=== PATIENT | female | born 1965 | race Caucasian/White ===

== ENCOUNTER 2017-05-30 17:35 | Observation (INO) | payer BC, OTHER ==
[~2017-05-30 17:35] MED LIST: ATOR20TA15 PO; CANA100T PO; DICL1GEL TOPICAL; GABA300C5 PO; HYDR-3533 PO; LEVEMIR SQ; LORA-474 PO; LOSA50TA PO; METO25TA3 PO; OMEP40CA2 PO; PHEN37.54 PO; TRAM50TA PO; TRAZ50TA12 PO; VALA500T PO; VENL37.5 PO
[2017-05-30 18:21] VITALS: BP 154/84; PULSE 105; RESP 20; TEMP 98.9; O2SAT 97
[2017-05-30] MEDS ORDERED: LORA-474 PO (20:21)
[2017-05-30] MEDS ORDERED: DICL1GEL7 TOPICAL (20:21)
[2017-05-30] MEDS ORDERED: METO25TA3 PO (20:21)
[2017-05-30] MEDS ORDERED: LOSA50TA PO (20:21)
[2017-05-30] MEDS ORDERED: SITA25 PO (20:22)
[2017-05-30] MEDS ORDERED: TOPI25 PO (20:22)
[2017-05-30 20:25] VITALS: BP 165/81; PULSE 86
[2017-05-30 20:37] LABS: AUTOMATED NEUTROPHIL # 4.3 TH/MM3 (1.8-7.7); BASOPHIL # 0.1 TH/MM3 (0-0.2); BASOPHIL % 1.2 % (0.0-2.0); EOSINOPHIL # 0.3 TH/MM3 (0-0.4); EOSINOPHIL % 4.4 % (0.0-4.0); HEMATOCRIT 44.8 % (35.0-46.0); HEMOGLOBIN 14.1 GM/DL (11.6-15.3); LYMPH % 29.3 % (9.0-44.0); LYMPHOCYTE # 2.2 TH/MM3 (1.0-4.8); MEAN CELL VOLUME 88.9 FL (80.0-100.0); MEAN CORPUSCULAR HGB CONC 31.5 % (32.0-36.0); MEAN PLATELET VOLUME 8.8 FL (7.0-11.0); MONO % 7.9 % (0.0-8.0); MONOCYTE # 0.6 TH/MM3 (0-0.9); NEUT % 57.2 % (16.0-70.0); PLATELET COUNT 257 TH/MM3 (150-450); RED BLOOD COUNT 5.04 MIL/MM3 (4.00-5.30); WHITE BLOOD COUNT 7.5 TH/MM3 (4.0-11.0)
[2017-05-30 20:47] LABS: CHLORIDE 105 MEQ/L (98-107); SODIUM (NA) 138 MEQ/L (136-145)
[2017-05-30 20:51] LABS: ALBUMIN 3.8 GM/DL (3.4-5.0); BICARBONATE 26.5 MEQ/L (21.0-32.0); CALCIUM 9.3 MG/DL (8.5-10.1); GLUCOSE,RANDOM 201 MG/DL (74-106); LIPASE 348 U/L (73-393); MAGNESIUM 2.2 MG/DL (1.5-2.5)
[2017-05-30 20:52] LABS: BLOOD UREA NITROGEN 16 MG/DL (7-18)
[2017-05-30 20:54] LABS: ALT (GPT) 25 U/L (10-53); AST (GOT) 9 U/L (15-37); CREATININE 0.76 MG/DL (0.50-1.00); GLOMERULAR FILTRATION RATE 80 ML/MIN (>89)
[2017-05-30 20:56] LABS: TOTAL BILIRUBIN ADULT 0.2 MG/DL (0.2-1.0); TOTAL PROTEIN 7.4 GM/DL (6.4-8.2)
[2017-05-30 20:57] LABS: ALKALINE PHOSPHATASE 113 U/L (45-117)
--- NOTE | 2017-05-30 20:59 | RADRPT ---
EXAM DATE/TIME: 05/30/2017 20:43 [facility] COMPARISON: No previous studies available for comparison. INDICATIONS : Chest pain. MEDICAL HISTORY : None. SURGICAL HISTORY : None. ENCOUNTER: Initial ACUITY: 1 day PAIN SCORE: 5/10 LOCATION: Bilateral chest FINDINGS: A single view of the chest demonstrates the lungs to be symmetrically aerated without evidence of mas s, infiltrate or effusion. The cardiomediastinal contours are unremarkable. Osseous structures are intact. CONCLUSION: Normal examination. Ron Adler MD on May 30, 2017 at 20:57 Board Certified Radiologist. This report was verified electronically.
[2017-05-30 21:00] LABS: TROPONIN I LESS THAN 0.02 NG/ML (0.02-0.05)
[2017-05-30] MEDS ORDERED: ALUMINUM/MAGNESIUM/SIMETH 30 ML CUP PO ONE (21:00)
[2017-05-30] MEDS ORDERED: LIDOCAINE VISCOUS 2% SOLN 15 ML UDC SWISH-SWAL ONE (21:00)
[2017-05-30] MEDS ORDERED: PANTOPRAZOLE SODIUM 40 MG VIAL IV PUSH ONE (21:00)
[2017-05-30 21:14] VITALS: BP 144/77; PULSE 83; O2SAT 96
--- NOTE | 2017-05-30 21:20 | PD ---
HPI Chief Complaint: Chest Pain Time Seen by Provider: 20:17 Travel History International Travel<30 days: No Contact w/Intl Traveler<30days: No Traveled to known affect area: No History of Present Illness HPI pt has CP left sided off and on for the last 24 hours it is sharp not burning not pressure like , she took omeprazole without relief and pain continues even in ER . Pt has poorly controlled DM on Lantus last Hg A1 c was 12 , pt denies N/V/D pt is awake alert and in no obviuos distress in ER PFSH Past Medical History Depression: Yes Diabetes: Yes Past Surgical History Cholecystectomy: Yes Social History Alcohol Use: No Tobacco Use: No Allergies-Medications (Allergen,Severity, Reaction): Coded Allergies: cefuroxime (Unverified Allergy, Mild, 05/30/17) ciprofloxacin (Unverified Allergy, Mild, 05/30/17) Sulfa (Sulfonamide Antibiotics) (Unverified Allergy, Unknown, 05/30/17) diclofenac (Unverified Allergy, Unknown, 05/30/17) etodolac (Unverified Allergy, Unknown, 05/30/17) flurbiprofen (Unverified Allergy, Unknown, 05/30/17) ibuprofen (Unverified Allergy, Unknown, 05/30/17) indomethacin (Unverified Allergy, Unknown, 05/30/17) ketoprofen (Unverified Allergy, Unknown, 05/30/17) ketorolac (Unverified Allergy, Unknown, 05/30/17) naproxen (Unverified Allergy, Unknown, 05/30/17) oxaprozin (Unverified Allergy, Unknown, 05/30/17) sulfamethoxazole (Unverified Allergy, Unknown, 05/30/17) trimethoprim (Unverified Allergy, Unknown, 05/30/17) Reported Meds & Prescriptions Reported Meds & Active Scripts Active Gabapentin 300 Mg Cap 300 Mg PO HS Reported Topamax (Topiramate) 25 Mg Tab 25 Mg PO DAILY Januvia (Sitagliptin Phosphate) 25 Mg Tab 25 Mg PO DAILY Diclofenac Topical 1% Gel 1 Applic TOPICAL QID Losartan (Losartan Potassium) 50 Mg Tab 50 Mg PO HS Ativan (Lorazepam) 1 Mg Tab 1 Mg PO Q8H PRN Metoprolol Tartrate 25 Mg Tab 25 Mg PO BID Levemir Inj (Insulin Detemir) 1,000 unit/ 10 ML Vial 50 Units SQ HS Do not mix with any other Insulin. Effexor (Venlafaxine HCl) 37.5 Mg Tab 75 Mg PO HS Valacyclovir (Valacyclovir HCl) 500 Mg Tab 500 Mg PO DAILY Trazodone (Trazodone HCl) 50 Mg Tab 50 Mg PO HS Tramadol (Tramadol HCl) 50 Mg Tab 50 Mg PO Q6H PRN Phentermine (Phentermine HCl) 37.5 Mg Cap 37.5 Mg PO DAILY Omeprazole 40 Mg Cap 40 Mg PO HS Metoprolol Tartrate 25 Mg Tab 25 Mg PO DAILY Atorvastatin (Atorvastatin Calcium) 20 Mg Tab 20 Mg PO HS Review of Systems Except as stated in HPI: all other systems reviewed are Neg Cardiovascular: Positive: Chest Pain or Discomfort Physical Exam Narrative GENERAL: non diaphoretic no apparent distress, few papules noted on lower lip and chin SKIN: Warm and dry. few papules on chin and skin HEAD: Atraumatic. Normocephalic. EYES: Pupils equal and round. No scleral icterus. No injection or drainage. ENT: No nasal bleeding or discharge. Mucous membranes pink and moist. NECK: Trachea midline. No JVD. CARDIOVASCULAR: Regular rate and rhythm. RESPIRATORY: No accessory muscle use. Clear to auscultation. Breath sounds equal bilaterally. GASTROINTESTINAL: Abdomen soft, non-tender, nondistended. Hepatic and splenic margins not palpable. MUSCULOSKELETAL: Extremities without clubbing, cyanosis, or edema. No obvious deformities. NEUROLOGICAL: Awake and alert. No obvious cranial nerve deficits. Motor grossly within normal limits. Five out of 5 muscle strength in the arms and legs. Normal speech. PSYCHIATRIC: Appropriate mood and affect; insight and judgment normal. Data Data Last Documented VS Vital Signs Date Time Temp Pulse Resp B/P (MAP) Pulse Ox O2 Delivery O2 Flow Rate FiO2 05/30/17 23:01 75 141/63 (89) 97 Room Air 05/30/17 18:21 98.9 20 Orders Orders Electrocardiogram (05/30/17 18:30) Electrocardiogram (05/30/17 20:21) Complete Blood Count With Diff (05/30/17 20:21) Comprehensive Metabolic Panel (05/30/17 20:21) Ckmb (Isoenzyme) Profile (05/30/17 20:21) Troponin I (05/30/17 20:21) Lipase (1/10/18 20:21) Magnesium (Mg) (05/30/17 20:21) Chest, Single Ap (05/30/17 ) Pantoprazole Inj (Protonix Inj) (05/30/17 21:00) Al-Mag Hy-Si 40-40-4 Mg/Ml Liq (Mag-Al P (05/30/17 21:00) Lidocaine 2% Viscous (Xylocaine 2% Visco (05/30/17 21:00) Aspirin Chew (Aspirin Chew) (05/30/17 21:30) Nitroglycerin 2% Oint (Nitroglycerin 2% (05/30/17 21:30) Morphine Inj (Morphine Inj) (05/30/17 21:30) Atorvastatin (Lipitor) (05/30/17 22:00) Gabapentin (Neurontin) (05/30/17 22:00) Lorazepam (Ativan) (05/30/17 22:00) Losartan (Cozaar) (05/30/17 22:00) Topiramate (Topamax) (05/31/17 09:00) Trazodone (Desyrel) (05/30/17 22:00) Valacyclovir (Valtrex) (05/31/17 09:00) Pantoprazole (Protonix) (05/30/17 22:30) Venlafaxine Xr (Effexor Xr) (05/30/17 22:30) Place In Observation (05/30/17 ) Vital Signs (Adult) Q4H (05/30/17 21:58) Activity Bed Rest With Brp (05/30/17 ) Production Expediter / Telemetry TK.Q8H (05/30/17 21:58) Notify Dr: Other (05/30/17 ) Sodium Chloride 0.9% Flush (Ns Flush) (05/31/17 09:00) Sodium Chloride 0.9% Flush (Ns Flush) (05/30/17 22:00) Nitroglycerin Sl (Nitrostat Sl) (05/30/17 22:00) Acetaminophen (Tylenol) (05/30/17 22:00) Acetamin-Hydrocod 325-7.5 Mg ([place] 7.5 (05/30/17 22:00) Morphine Inj (Morphine Inj) (05/30/17 22:00) Creatine Kinase (Cpk) (05/31/17 02:25) Creatine Kinase (Cpk) (05/31/17 08:25) Troponin I (05/31/17 02:25) Troponin I (05/31/17 08:25) Electrocardiogram (05/31/17 02:25) Electrocardiogram (05/31/17 08:25) Bedside Glucose TK.CSUGAR (05/30/17 22:03) Special Diet Instructions (05/30/17 22:03) Blood Glucose Goal (Criteria) (05/30/17 22:03) Hypoglycemia 70 Mg/Dl Or < (05/30/17 22:03) Notify Dr: Other (05/30/17 22:03) Dextrose 50% In [place] (Vial) Inj (D50w (Vi (05/30/17 22:15) Glucagon Inj (Glucagon Inj) (05/30/17 22:15) Insulin Aspart Supplemtl Scale (Novolog (05/31/17 08:00) ^ Other Nursing Orders (05/30/17 22:03) Heparin Inj (Heparin Inj) (05/31/17 06:00) Admit Order (Ed Use Only) (05/30/17 23:41) Labs Laboratory Tests Test 05/30/17 20:25 White Blood Count 7.5 TH/MM3 Red Blood Count 5.04 MIL/MM3 Hemoglobin 14.1 GM/DL Hematocrit 44.8 % Mean Corpuscular Volume 88.9 FL Mean Corpuscular Hemoglobin 28.0 PG Mean Corpuscular Hemoglobin Concent 31.5 % Red Cell Distribution Width 14.0 % Platelet Count 257 TH/MM3 Mean Platelet Volume 8.8 FL Neutrophils (%) (Auto) 57.2 % Lymphocytes (%) (Auto) 29.3 % Monocytes (%) (Auto) 7.9 % Eosinophils (%) (Auto) 4.4 % Basophils (%) (Auto) 1.2 % Neutrophils # (Auto) 4.3 TH/MM3 Lymphocytes # (Auto) 2.2 TH/MM3 Monocytes # (Auto) 0.6 TH/MM3 Eosinophils # (Auto) 0.3 TH/MM3 Basophils # (Auto) 0.1 TH/MM3 CBC Comment DIFF FINAL Differential Comment Blood Urea Nitrogen 16 MG/DL Creatinine 0.76 MG/DL Random Glucose 201 MG/DL Total Protein 7.4 GM/DL Albumin 3.8 GM/DL Calcium Level 9.3 MG/DL Magnesium Level 2.2 MG/DL Alkaline Phosphatase 113 U/L Aspartate Amino Transf (AST/SGOT) 9 U/L Alanine Aminotransferase (ALT/SGPT) 25 U/L Total Bilirubin 0.2 MG/DL Sodium Level 138 MEQ/L Potassium Level 3.7 MEQ/L Chloride Level 105 MEQ/L Carbon Dioxide Level 26.5 MEQ/L Anion Gap 7 MEQ/L Estimat Glomerular Filtration Rate 80 ML/MIN Total Creatine Kinase 52 U/L Troponin I LESS THAN 0.02 NG/ML Lipase 348 U/L [facility] Medical Decision Making Medical Screen Exam Complete: Yes Emergency Medical Condition: Yes Differential Diagnosis Acute coronary syndrome versus GERD versus costochondritis versus acid reflux versus pneumonia other Narrative Course EKG is normal sinus rhythm first set of troponin is negative patient is given Protonix and GI cocktail to see if this is gastritis it does not relieve any of her symptoms. I then go down the ACS pathway give her 2 chewable baby aspirin and Nitropaste and admit her to telemetry for ruling out acute coronary syndrome pending second troponin Diagnosis Primary Impression: Chest pain Admitting Information Admitting Physician Requests: Observation Ilya Quintana MD May 30, 2017 21:19
[2017-05-30] MEDS ORDERED: ASPIRIN 81 MG CHEW TAB CHEW ONE (21:30)
[2017-05-30] MEDS ORDERED: MORPHINE SULFATE 2 MG/ML INJ IV PUSH ONE (21:30)
[2017-05-30] MEDS ORDERED: NITROGLYCERIN 2% OINT 1 GM PACKET TOPICAL ONE (21:30)
[2017-05-30] MEDS ORDERED: GABAPENTIN 300 MG CAP PO SCH (22:00)
[2017-05-30] MEDS ORDERED: ATORVASTATIN 20 MG TAB PO SCH (22:00)
[2017-05-30] MEDS ORDERED: MORPHINE SULFATE 4 MG/ML INJ IV PUSH PRN (22:00)
[2017-05-30] MEDS ORDERED: LOSARTAN 50 MG TAB PO SCH (22:00)
[2017-05-30] MEDS ORDERED: NITROGLYCERIN 0.4 MG SL 25 TABS/BTL SL PRN (22:00)
[2017-05-30] MEDS ORDERED: LORazepam 1 MG TAB PO PRN (22:00)
[2017-05-30] MEDS ORDERED: SODIUM CHLORIDE 0.9% FLUSH 10 ML FLUSH IV FLUSH PRN (22:00)
[2017-05-30] MEDS ORDERED: ACETAMINOPHEN 500 MG CPLT PO PRN (22:00)
[2017-05-30] MEDS ORDERED: traZODone HCL 50 MG TAB PO SCH (22:00)
[2017-05-30] MEDS ORDERED: DEXTROSE 50% IN WATER 50 ML VIAL(D50) IV PUSH PRN (22:15)
[2017-05-30] MEDS ORDERED: GLUCAGON 1 MG/ML VIAL OTHER PRN (22:15)
[2017-05-30] MEDS ORDERED: VENLAFAXINE HCL XR 75 MG CAP PO SCH (22:30)
[2017-05-30] MEDS ORDERED: PANTOPRAZOLE SOD 40 MG DELAYED RELEASE TAB PO SCH (22:30)
[2017-05-30 23:01] VITALS: BP 141/63; PULSE 75; O2SAT 97
[2017-05-31] MEDS: ACETAMINOPHEN/HYDROcodone 325 MG/7.5 MG TAB PO PRN ×3 (01:08→15:19)
[2017-05-31 01:10] VITALS: BP 127/67; PULSE 73; RESP 16; O2SAT 95
[2017-05-31 02:59] LABS: TROPONIN I LESS THAN 0.02 NG/ML (0.02-0.05)
[2017-05-31 04:00] VITALS: BP 104/55; PULSE 69; RESP 16; TEMP 96.4; O2SAT 96
[2017-05-31] MEDS: HEPARIN SODIUM - SQ 10,000 UNITS/ML VIAL SQ SCH ×2 (05:54→15:20)
[2017-05-31 08:00] VITALS: BP 133/73; PULSE 72; RESP 18; TEMP 97; O2SAT 97
[2017-05-31] MEDS: INSULIN ASPART SUPPLEMENTAL SCALE SQ SCH ×3 (08:00→17:00)
[2017-05-31 08:27] VITALS: PULSE 68
[2017-05-31] MEDS ORDERED: TOPIRAMATE 25 MG TAB PO SCH (09:00)
[2017-05-31] MEDS ORDERED: SODIUM CHLORIDE 0.9% FLUSH 10 ML FLUSH IV FLUSH SCH (09:00)
[2017-05-31] MEDS ORDERED: valACYclovir HCL 500 MG TAB PO SCH (09:00)
--- NOTE | 2017-05-31 09:26 | HHI.HP ---
[facility] Service [facility] Primary Care Physician Suzanne Moon D.O. Admission Diagnosis Chest pain Diagnoses: Chief Complaint: Chest pain Travel History International Travel<30 Days: No Contact w/Intl Traveler <30 Da: No Traveled to Known Affected Are: No History of Present Illness Written by Citlalli Goodwin, acting as scribe for Dr. Mendez on 05/31/17 at 09:26. This is a 52-year-old female patient with a known medical history of hyperlipidemia, hypertension and diabetes who presented to the ED with complaints of chest pain. Patient states that over the last forty-eight hours she has been experiencing intermittent left-sided chest discomfort. She states that the pain is characteristically aching in nature, states "it feels kind of like a punch in the chest", usually last less than a minute and comes and goes on its own without any known alleviating or worsening factors. She does state that the pain seems to come on with exertion and wants rest pain resolves. Denies any associated diaphoresis, nausea or vomiting. Does admit to occasional shortness of breath. She does state that she took omeprazole at home without relief, thinking this might be due to her gastric reflux. Denies any recent illness including fever, chills, cough, abdominal pain, nausea, vomiting, diarrhea or dysuria. Patient is a hospice nurse. Denies any change in medications. PCP is Dr. Mariano. Patient does also have diabetes which is uncontrolled, she does take long-acting insulin. Patient does admit to a history of chest pain two years ago, at that time underwent a cardiac stress test and cardiac catheterization which was reportedly normal. About a year ago patient states that she also had some complete the chest pain underwent a cardiac stress test showing some "shadow" or "abnormality" per patient. At that point with no further intervention was performed or follow-up with health care manager. Review of Systems Constitutional: DENIES: Fatigue, Fever, Chills Eyes: DENIES: Blurred vision, Diplopia Respiratory: COMPLAINS OF: Shortness of breath, DENIES: Cough Cardiovascular: COMPLAINS OF: Chest pain, DENIES: Palpitations Gastrointestinal: DENIES: Abdominal pain, Black stools, Bloody stools, Constipation, Diarrhea, Nausea, Vomiting Musculoskeletal: DENIES: Joint pain Psychiatric: DENIES: Anxiety Except as stated in HPI: all other systems reviewed are Neg Past Family Social History Past Medical History Type 2 diabetes Hypertension Hyperlipidemia Depression Past Surgical History Cholecystectomy Left shoulder repair surgery Right carpal tunnel repair Bilateral knee arthroscopically Right foot anatomy Previous cardiac catheterization 2014 Reported Medications Active Gabapentin 300 Mg Cap 300 Mg PO HS Reported Topamax (Topiramate) 25 Mg Tab 25 Mg PO DAILY Januvia (Sitagliptin Phosphate) 25 Mg Tab 25 Mg PO DAILY Diclofenac Topical 1% Gel 1 Applic TOPICAL QID Losartan (Losartan Potassium) 50 Mg Tab 50 Mg PO HS Ativan (Lorazepam) 1 Mg Tab 1 Mg PO Q8H PRN Metoprolol Tartrate 25 Mg Tab 25 Mg PO BID Levemir Inj (Insulin Detemir) 1,000 unit/ 10 ML Vial 50 Units SQ HS Do not mix with any other Insulin. Effexor (Venlafaxine HCl) 37.5 Mg Tab 75 Mg PO HS Valacyclovir (Valacyclovir HCl) 500 Mg Tab 500 Mg PO DAILY Trazodone (Trazodone HCl) 50 Mg Tab 50 Mg PO HS Tramadol (Tramadol HCl) 50 Mg Tab 50 Mg PO Q6H PRN Phentermine (Phentermine HCl) 37.5 Mg Cap 37.5 Mg PO DAILY Omeprazole 40 Mg Cap 40 Mg PO HS Metoprolol Tartrate 25 Mg Tab 25 Mg PO DAILY Atorvastatin (Atorvastatin Calcium) 20 Mg Tab 20 Mg PO HS Allergies: Coded Allergies: cefuroxime (Unverified Allergy, Mild, 05/30/17) ciprofloxacin (Unverified Allergy, Mild, 05/30/17) Sulfa (Sulfonamide Antibiotics) (Unverified Allergy, Unknown, 05/30/17) diclofenac (Unverified Allergy, Unknown, 05/30/17) etodolac (Unverified Allergy, Unknown, 05/30/17) flurbiprofen (Unverified Allergy, Unknown, 05/30/17) ibuprofen (Unverified Allergy, Unknown, 05/30/17) indomethacin (Unverified Allergy, Unknown, 05/30/17) ketoprofen (Unverified Allergy, Unknown, 05/30/17) ketorolac (Unverified Allergy, Unknown, 05/30/17) naproxen (Unverified Allergy, Unknown, 05/30/17) oxaprozin (Unverified Allergy, Unknown, 05/30/17) sulfamethoxazole (Unverified Allergy, Unknown, 05/30/17) trimethoprim (Unverified Allergy, Unknown, 05/30/17) Active Ordered Medications Current Medications Medications (Trade) Dose Ordered Sig/Kali Route Start Time Stop Time Status Last Admin (Lipitor) 20 mg HS PO 05/30/17 22:00 (Neurontin) 300 mg HS PO 05/30/17 22:00 05/30/17 22:46 (Ativan) 1 mg Q8H PRN PO 05/30/17 22:00 (Cozaar) 50 mg HS PO 05/30/17 22:00 05/30/17 22:57 (Topamax) 25 mg DAILY PO 05/31/17 09:00 05/31/17 08:21 (Desyrel) 50 mg HS PO 05/30/17 22:00 05/30/17 22:57 (Valtrex) 500 mg DAILY PO 05/31/17 09:00 05/31/17 08:21 (Protonix) 40 mg HS PO 05/30/17 22:30 05/30/17 22:46 (Effexor Xr) 75 mg HS PO 05/30/17 22:30 05/30/17 22:57 (NS Flush) 2 ml BID IV FLUSH 05/31/17 09:00 05/31/17 08:26 (NS Flush) 2 ml UNSCH PRN IV FLUSH 05/30/17 22:00 (Nitrostat Sl) 0.4 mg Q5M PRN SL 05/30/17 22:00 (Tylenol) 500 mg Q4H PRN PO 05/30/17 22:00 05/31/17 05:54 ([place] 7.5-325 Mg) 1 tab Q4H PRN PO 05/30/17 22:00 05/31/17 01:08 (Morphine Inj) 2 mg Q3H PRN IV PUSH 05/30/17 22:00 (Heparin Inj) 5,000 units Q8HR SQ 05/31/17 06:00 05/31/17 05:54 (D50w (Vial) Inj) 50 ml UNSCH PRN IV PUSH 05/30/17 22:15 (Glucagon Inj) 1 mg UNSCH PRN OTHER 05/30/17 22:15 (NovoLOG SUPPLEMENTAL SCALE) 1 ACHS SLIDING SCALE SQ 05/31/17 08:00 Family History Paternal medical history significant for CHF, diabetes and stroke. Maternal medical history significant for hyperlipidemia, hypertension and leukemia. Social History Patient denies any current tobacco use. States she quit thirteen years ago. Denies any illicit drug use. Does admit to occasional alcohol use. Physical Exam Vital Signs Vital Signs Date Time Temp Pulse Resp B/P (MAP) Pulse Ox O2 Delivery O2 Flow Rate FiO2 05/31/17 04:00 96.4 69 16 104/55 (71) 96 05/31/17 01:15 05/31/17 01:10 73 16 127/67 (87) 95 Room Air 05/30/17 23:01 75 141/63 (89) 97 Room Air 05/30/17 21:14 83 144/77 (99) 96 Room Air 05/30/17 20:35 87 Room Air 05/30/17 20:25 86 165/81 (109) Room Air 05/30/17 18:21 98.9 105 20 154/84 (107) 97 Physical Exam GENERAL: This is a well-developed patient, lying in bed in no apparent distress. SKIN: No rashes, ecchymoses or lesions. Warm and dry. HEAD: Atraumatic. Normocephalic. EYES: Pupils equal round and reactive. Extraocular motions intact. No scleral icterus. No injection or drainage. ENT: Nose without bleeding, purulent drainage or septal hematoma. Throat without erythema, tonsillar hypertrophy or exudate. Uvula midline. Airway patent. NECK: Trachea midline. No JVD. Supple. CARDIOVASCULAR: Regular rate and rhythm without murmurs, gallops, or rubs. No reproducible chest pain to palpation RESPIRATORY: Clear to auscultation. Breath sounds equal bilaterally. No wheezes , rales, or rhonchi. GASTROINTESTINAL: Abdomen soft, non-tender, nondistended. No guarding. MUSCULOSKELETAL: Extremities without clubbing, cyanosis, or edema. No joint tenderness, effusion, or edema noted. NEUROLOGICAL: Awake and alert. Cranial nerves II through XII intact. Motor and sensory grossly within normal limits. Five out of 5 muscle strength in all muscle groups. Normal speech. Laboratory Laboratory Tests Test 05/30/17 20:25 05/31/17 02:25 05/31/17 08:15 White Blood Count 7.5 Red Blood Count 5.04 Hemoglobin 14.1 Hematocrit 44.8 Mean Corpuscular Volume 88.9 Mean Corpuscular Hemoglobin 28.0 Mean Corpuscular Hemoglobin Concent 31.5 Red Cell Distribution Width 14.0 Platelet Count 257 Mean Platelet Volume 8.8 Neutrophils (%) (Auto) 57.2 Lymphocytes (%) (Auto) 29.3 Monocytes (%) (Auto) 7.9 Eosinophils (%) (Auto) 4.4 Basophils (%) (Auto) 1.2 Neutrophils # (Auto) 4.3 Lymphocytes # (Auto) 2.2 Monocytes # (Auto) 0.6 Eosinophils # (Auto) 0.3 Basophils # (Auto) 0.1 CBC Comment DIFF FINAL Differential Comment Blood Urea Nitrogen 16 Creatinine 0.76 Random Glucose 201 Total Protein 7.4 Albumin 3.8 Calcium Level 9.3 Magnesium Level 2.2 Alkaline Phosphatase 113 Aspartate Amino Transf (AST/SGOT) 9 Alanine Aminotransferase (ALT/SGPT) 25 Total Bilirubin 0.2 Sodium Level 138 Potassium Level 3.7 Chloride Level 105 Carbon Dioxide Level 26.5 Anion Gap 7 Estimat Glomerular Filtration Rate 80 Total Creatine Kinase 52 55 Troponin I LESS THAN 0.02 LESS THAN 0.02 Lipase 348 Result Diagram: 05/30/17202405/30/172024 Imaging Last Impressions Chest X-Ray 05/30/17 0000 Signed Impressions: Service Date/Time: Tuesday, May 30, 2017 20:43 - CONCLUSION: Normal examination. Ron Adler MD Septic Shock Reassessment Septic shock perfusion: reassessment completed Caprini VTE Risk Assessment Caprini VTE Risk Assessment: No/Low Risk (score <= 1) Caprini Risk Assessment Model Point Value = 1 Point Value = 2 Point Value = 3 Point Value = 5 Age 41-60 Minor surgery BMI > 25 kg/m2 Swollen legs Varicose veins or History of unexplained or recurrent spontaneous Oral contraceptives or hormone replacement Sepsis (< 1 month) Serious lung disease, including pneumonia (< 1 month) Abnormal pulmonary function Acute myocardial infarction Congestive heart failure (< 1 month) History of inflammatory bowel disease Medical patient at bed rest Age 61-74 Arthroscopic surgery Major open surgery (> 45 min) Laparoscopic surgery (> 45 min) Malignancy Confined to bed (> 72 hours) Immobilizing plaster cast Central venous access Age >= 75 History of VTE Family history of VTE Factor V Leiden Prothrombin [id number] Lupus anticoagulant Anticardiolipin antibodies Elevated serum homocysteine Heparin-induced thrombocytopenia Other congenital or acquired thrombophilia Stroke (< 1 month) Elective arthroplasty Hip, pelvis, or leg fracture Acute spinal cord injury (< 1 month) Prophylaxis Regimen Total Risk Factor Score Risk Level Prophylaxis Regimen 0-1 Low Early ambulation 2 Moderate Order ONE of the following: *Sequential Compression Device (SCD) *Heparin 5000 units SQ BID 3-4 Higher Order ONE of the following medications: *Heparin 5000 units SQ TID *Enoxaparin/Lovenox 40 mg SQ daily (WT < 150 kg, CrCl > 30 mL/min) *Enoxaparin/Lovenox 30 mg SQ daily (WT < 150 kg, CrCl > 10-29 mL/min) *Enoxaparin/Lovenox 30 mg SQ BID (WT < 150 kg, CrCl > 30 mL/min) AND/OR *Sequential Compression Device (SCD) 5 or more Highest Order ONE of the following medications: *Heparin 5000 units SQ TID (Preferred with Epidurals) *Enoxaparin/Lovenox 40 mg SQ daily (WT < 150 kg, CrCl > 30 mL/min) *Enoxaparin/Lovenox 30 mg SQ daily (WT < 150 kg, CrCl > 10-29 mL/min) *Enoxaparin/Lovenox 30 mg SQ BID (WT < 150 kg, CrCl > 30 mL/min) AND *Sequential Compression Device (SCD) Assessment and Plan Problem List: (1) Chest pain ICD Code: R07.9 - Chest pain, unspecified Plan: Patient has been admitted to the chest pain center under observation. Serial EKGs and serial troponins have been ordered for ruling out ACS purposes. Serial troponins are flat. EKG has been reviewed, controlled heart rate, with presence of right bundle branch block. Patient states that this is not a new finding. Chest pain has at this time resolved. Patient is lying in bed comfortably. Taking into consideration patient's family medical history, and personal cardiac history, and comorbidities patient will undergo a cardiac chemical stress test to rule out any further ischemia. Chest x-ray reviewed CBC and BMP reviewed viewed, essentially unremarkable. Supplemental O2 as needed. Patient is tolerating room air comfortably. Status stable at this time and agreeable to the plan. (2) Hypertension ICD Code: I10 - Essential (primary) hypertension Plan: Blood pressures repute, controlled at this time. Continue home medications. (3) Hyperlipidemia ICD Code: E78.5 - Hyperlipidemia, unspecified Plan: Continue home statin. (4) Type 2 diabetes mellitus ICD Code: E11.9 - Type 2 diabetes mellitus without complications Plan: Patient has been nothing by mouth. Will place on Accu-Cheks, sliding scale, cover as needed. Monitor blood sugar trends. (5) Depression ICD Code: F32.9 - Major depressive disorder, single episode, unspecified Plan: Continue home medications. DVT prophylaxis: SCDs. Assessment and Plan This note was transcribed by ANAYELI Ashraf. I, Dr. Chloe Mendez personally performed the history, physical exam, and medical decision making; and confirmed the accuracy of the information in the transcribed note. Authenticated by Dr. Chloe Mendez on 05/31/17 at 09:26. DC plan: Mary scan reviewed and negative, low risk, EF 70% DC home in stable condition to follow up as OP with PCP and consultants Diet Healthy hears and diabetic diet Activity ad sonia as tolerated Meds per med reconciliations Discussed Condition With patient. Citlalli Gates May 31, 2017 09:26 Chloe Mendez MD May 31, 2017 09:28
[2017-05-31 10:12] LABS: TROPONIN I LESS THAN 0.02 NG/ML (0.02-0.05)
[2017-05-31 12:00] VITALS: BP 119/69; PULSE 70; RESP 18; TEMP 97.2; O2SAT 97
--- NOTE | 2017-05-31 13:07 | RADRPT ---
EXAM DATE/TIME: 05/31/2017 10:39 [facility] COMPARISON: No previous studies available for comparison. INDICATIONS : Left chest pain. Angina. DOSE: 35 mCi Tc99m Myoview at stress. 11 mCi Tc99m Myoview at rest. 0.4 mg Lexiscan STRESS SYMPTOMS: Chest pressure, headache and tingling. EJECTION FRACTION: > 70% MEDICAL HISTORY : Diabetes mellitus type 2. Hypercholesterolemia. Hypertension. SURGICAL HISTORY : Cholecystectomy. ENCOUNTER: Initial ACUITY: 1 day PAIN SCALE: 7/10 LOCATION: Left chest TECHNIQUE: The patient underwent pharmacologic stress with infusion of prescribed dose. Continuous ECG tracing was monitored during stress. Gated SPECT imaging was performed after stress and conventional SPECT i maging was performed at rest. The examination was performed on a SPECT/CT scanner, both attenuation and non-corrected datasets were reviewed. FINDINGS: DISTRIBUTION: The maximum perfused segment at stress is in the lateral wall. PERFUSION STUDY: The pattern of perfusion at stress is within normal limits. GATED STUDY: There is intact wall motion and thickening without hypokinetic or dyskinetic segments. CONCLUSION: 1. No evidence for significant stress induced ischemia. 2. Normal wall motion with EF of greater than 70%. RISK CATEGORY: Low (<1% Annual Mortality Rate) Elmo Flores MD on May 31, 2017 at 13:04 Board Certified Radiologist. This report was verified electronically.
--- NOTE | 2017-05-31 15:17 | HHI.DCPOC ---
Discharge Care Plan Goals to Promote Your Health * To prevent worsening of your condition and complications * To maintain your health at the optimal level Directions to Meet Your Goals Take your medications as prescribed Follow your dietary instruction Follow activity as directed Keep your appointments as scheduled Take your immunizations and boosters as scheduled If your symptoms worsen call your PCP, if no PCP go to Urgent Care Center or Emergency Room Smoking is Dangerous to Your Health. Avoid second hand smoke Call the 24-hour hour crisis hotline for domestic abuse at Chloe Mendez MD May 31, 2017 15:17
[2017-05-31 16:00] VITALS: BP 120/74; PULSE 74; RESP 16; TEMP 97.8; O2SAT 95
--- NOTE | 2017-05-31 20:53 | EKG ---
Date Performed: 05/31/2017 Time Performed: 08:07:02 PTAGE: 52 years EKG: Sinus rhythm RIGHT BUNDLE BRANCH BLOCK ABNORMAL ECG SINCE PRIOR TRACING NO SIGNIFICANT CHANGE PREVIOUS TRACING : 05/31/2017 02.01 DOCTOR: Imani Clemons Interpretating Date/Time 05/31/2017 20:51:31
[2017-05-31] MEDS ORDERED: REGADENOSON INJ 0.4 MG/5 ML SYR IV ONE (23:43)
--- NOTE | 2017-06-01 06:25 | EKG ---
Date Performed: 05/30/2017 Time Performed: 18:30:25 PTAGE: 52 years EKG: Sinus rhythm RIGHT BUNDLE BRANCH BLOCK ABNORMAL ECG Compared to PREVIOUS TRACING , the patient has developed a right bundle branch block. There is diffus e nonspecific ST elevation, probably secondary to the right bundle branch block but it was also previ ously noted. PREVIOUS TRACIN02/11/2005 15.32 DOCTOR: Imani Clemons Interpretating Date/Time 06/01/2017 06:24:37
--- NOTE | 2017-06-01 06:25 | EKG ---
Date Performed: 05/30/2017 Time Performed: 20:35:06 PTAGE: 52 years EKG: Sinus rhythm RIGHT BUNDLE BRANCH BLOCK ABNORMAL ECG Since PREVIOUS TRACING , no significant change noted PREVIOUS TRACIN05/30/2017 18.30 DOCTOR: Imani Clemons Interpretating Date/Time 06/01/2017 06:25:09
--- NOTE | 2017-06-01 06:27 | EKG ---
Date Performed: 05/31/2017 Time Performed: 02:01:54 PTAGE: 52 years EKG: Sinus rhythm RIGHT BUNDLE BRANCH BLOCK ABNORMAL ECG Since PREVIOUS TRACING , no significant change noted PREVIOUS TRACIN05/30/2017 20.35 DOCTOR: Imani Clemons Interpretating Date/Time 06/01/2017 06:25:34
--- NOTE | 2017-06-01 16:05 | TR ---
Date Performed: 05/31/2017 Time Performed: 11:40:53 DOCTOR: Richy Thompson DRUG LIST: CLINICAL HISTORY: REASON FOR TEST: Chest pain REASON FOR ENDING: OBSERVATION: CONCLUSION: Lexiscan stress test was performed under standard four minute protocol. Radionuclid e was injected one minute prior to ending the test. No electrocardiographic abormalities were present to suggest ischemia. Nuclear imaging and interpretation are pending. COMMENTS:
== END 2017-05-31 17:39 | disposition home or self-care (01) ==
LOC: PHED 17:35 → PHEDA 23:42 → PH3A 05-31 01:15
PROVIDERS: ADMIT Hospitalist; ATTEND Hospitalist
DX: R07.89 Other chest pain (principal); R06.02 Shortness of breath; R51 Headache; R20.2 Paresthesia of skin; R94.31 Abnormal electrocardiogram [ECG] [EKG]; I10 Essential (primary) hypertension; E11.65 Type 2 diabetes mellitus with hyperglycemia; I45.10 Unspecified right bundle-branch block; E78.00 Pure hypercholesterolemia, unspecified; K21.9 Gastro-esophageal reflux disease without esophagitis; F32.9 Major depressive disorder, single episode, unspecified; Z79.899 Other long term (current) drug therapy; Z88.2 Allergy status to sulfonamides
CPT/HCPCS: 71045; 78452; 80053; 82550; 82948; 83690; 83735; 84484; 85025; 93005; 93017; 96372; 96374; 96375; 99285; A9502; C9113; G0378; J1644; J1815; J2270; J2785

== ENCOUNTER 2017-09-10 18:10 | Emergency (ER) | payer OTHER ==
[~2017-09-10] VITALS: Ht 167.6 cm; Wt 109.1 kg
[~2017-09-10 18:10] MED LIST changes: -CANA100T PO; -DICL1GEL TOPICAL; +DICL1GEL7 TOPICAL; -HYDR-3533 PO; +SITA25 PO; +TOPI25 PO
[2017-09-10 18:38] VITALS: BP 171/81; PULSE 90; RESP 20; TEMP 98.4; O2SAT 98
--- NOTE | 2017-09-10 19:29 | PD ---
HPI Chief Complaint: Skin Problem Time Seen by Provider: 19:23 (Sandi Randhawa) Time Seen by Provider: 19:23 (Demond Klein MD) Travel History International Travel<30 days: No Contact w/Intl Traveler<30days: No Traveled to known affect area: No (Sandi Randhawa) History of Present Illness HPI 52-year-old female presents emergency department for evaluation of a wound on the lateral aspect of her left lower extremity. Patient states that she noticed it 4 days ago. She went to urgent care and was started on clindamycin. She states she has been taking it since then. She does not feel it is getting better. She feels like it is getting worse. Denies any fever chills. Denies any significant pain except for when she touches it. She has no other symptoms to report. (Sandi Randhawa) History Past Medical Histgory Medical History: Denies Significant Hx Hx Cancer: No (Sandi Randhawa) Social History Alcohol Use: No Tobacco Use: No (Sandi Randhawa) Allergies-Medications (Allergen,Severity, Reaction): Coded Allergies: cefuroxime (Unverified Allergy, Mild, 05/30/17) ciprofloxacin (Unverified Allergy, Mild, 05/30/17) Sulfa (Sulfonamide Antibiotics) (Unverified Allergy, Unknown, 05/30/17) diclofenac (Unverified Allergy, Unknown, 05/30/17) etodolac (Unverified Allergy, Unknown, 05/30/17) flurbiprofen (Unverified Allergy, Unknown, 05/30/17) ibuprofen (Unverified Allergy, Unknown, 05/30/17) indomethacin (Unverified Allergy, Unknown, 05/30/17) ketoprofen (Unverified Allergy, Unknown, 05/30/17) ketorolac (Unverified Allergy, Unknown, 05/30/17) naproxen (Unverified Allergy, Unknown, 05/30/17) oxaprozin (Unverified Allergy, Unknown, 05/30/17) sulfamethoxazole (Unverified Allergy, Unknown, 05/30/17) trimethoprim (Unverified Allergy, Unknown, 05/30/17) Reported Meds & Prescriptions Reported Meds & Active Scripts Active Gabapentin 300 Mg Cap 300 Mg PO HS Reported Topamax (Topiramate) 25 Mg Tab 25 Mg PO DAILY Januvia (Sitagliptin Phosphate) 25 Mg Tab 25 Mg PO DAILY Diclofenac Topical 1% Gel 1 Applic TOPICAL QID Losartan (Losartan Potassium) 50 Mg Tab 50 Mg PO HS Ativan (Lorazepam) 1 Mg Tab 1 Mg PO Q8H PRN Metoprolol Tartrate 25 Mg Tab 25 Mg PO BID Levemir Inj (Insulin Detemir) 1,000 unit/ 10 ML Vial 50 Units SQ HS Do not mix with any other Insulin. Effexor (Venlafaxine HCl) 37.5 Mg Tab 75 Mg PO HS Valacyclovir (Valacyclovir HCl) 500 Mg Tab 500 Mg PO DAILY Trazodone (Trazodone HCl) 50 Mg Tab 50 Mg PO HS Tramadol (Tramadol HCl) 50 Mg Tab 50 Mg PO Q6H PRN Phentermine (Phentermine HCl) 37.5 Mg Cap 37.5 Mg PO DAILY Omeprazole 40 Mg Cap 40 Mg PO HS Metoprolol Tartrate 25 Mg Tab 25 Mg PO DAILY Atorvastatin (Atorvastatin Calcium) 20 Mg Tab 20 Mg PO HS (Demond Klein MD) Review of Systems Except as stated in HPI: all other systems reviewed are Neg (Sandi Randhawa) Physical Exam Narrative GENERAL: Well-nourished, well-developed female patient in no acute distress SKIN: Focused skin assessment warm/dry. 2 cm in diameter area of erythema with a 1 cm in diameter scabbed lesion in center of it. No fluctuation. No induration. HEAD: Normocephalic. EYES: No scleral icterus. No injection or drainage. NECK: Supple, trachea midline. No JVD or lymphadenopathy. CARDIOVASCULAR: Regular rate and rhythm without murmurs, gallops, or rubs. RESPIRATORY: Breath sounds equal bilaterally. No accessory muscle use. GASTROINTESTINAL: Abdomen soft, non-tender, nondistended. MUSCULOSKELETAL: No cyanosis, or edema. BACK: Nontender without obvious deformity. No CVA tenderness. (Sandi Randhawa) Data Data Last Documented VS Vital Signs Date Time Temp Pulse Resp B/P (MAP) Pulse Ox O2 Delivery O2 Flow Rate FiO2 09/10/17 18:38 98.4 90 20 171/81 (111) 98 (Demond Klein MD) [facility] Medical Screen Exam Complete: Yes Emergency Medical Condition: No Differential Diagnosis Healing wound Narrative Course 52-year-old female presents emergency department for evaluation of a wound on the lateral aspect of her left distal lower extremity. Patient has been on clindamycin for the last 3 days. She believes the area is getting worse. Patient has a small wound 2 cm on the left lateral lower extremity. There is no induration. There is no fluctuation. There is no drainage. The area is not warm to touch. I have marked the area and encouraged patient to continue to monitor and continue her antibiotic. Without any urgent or emergent needs for medical intervention identified patient will be discharged at this time A medical screening exam was performed: At the time of evaluation the presenting medical condition was determined not to be of an emergent nature. The patient was given the option of receiving additional care, but declined. Patient was given options for additional community resources from which to obtain care. The Patient Has Been advised to seek medical attention for their presenting complaint. The patient has been advised to return to the ER at any time if an emergent condition develops. (Sandi Randhawa) Primary Impression: Encounter for medical screening examination Ruled Out: Discoloration of skin Condition: Stable Sandi Randhawa Sep 10, 2017 19:29 Demond Klein MD Sep 10, 2017 22:23
== END 2017-09-10 20:09 | disposition left against medical advice (07) ==
LOC: NEPD 18:10
DX: S80.922A Unspecified superficial injury of left lower leg, initial encounter (principal)
CPT/HCPCS: 99281